=== PATIENT | female | born 1990 | race Caucasian/White ===

== ENCOUNTER 2017-02-24 20:46 | Emergency (ER) | payer OTHER ==
[~2017-02-24] VITALS: Ht 152.4 cm; Wt 71.2 kg
[~2017-02-24 20:46] MED LIST: ALLERGY10 M1 PO; CLINDAMYCIN HC300 MG PO; IBUPROFEN600 MG PO; NAPROSYN500 MG PO; NORCO 5-325 TA1 EACH PO; SUDAFED 12 HOU120 MG PO; TRAMADOL HCL50 MG PO
[2017-02-24] MEDS ORDERED: MULTIVITAMINS1 EAC7 PO (21:30)
== END 2017-02-24 23:19 | disposition home or self-care (01) ==
LOC: ED 20:46
DX: S30.1XXA Contusion of abdominal wall, initial encounter (principal); N83.201 Unspecified ovarian cyst, right side; F17.200 Nicotine dependence, unspecified, uncomplicated; Z87.442 Personal history of urinary calculi; Z88.0 Allergy status to penicillin; Z79.899 Other long term (current) drug therapy; W03.XXXA Other fall on same level due to collision with another person, initial encounter
CPT/HCPCS: 81001; 84703; 99283

== ENCOUNTER 2017-03-05 22:41 | Inpatient (IN) | payer OTHER ==
[~2017-03-05] VITALS: Ht 152.4 cm; Wt 65.0 kg
[~2017-03-05 22:41] MED LIST changes: +MULTIVITAMINS1 EAC7 PO
--- NOTE | 2017-03-06 03:40 | NUR ---
PT ARRIVED TO UNIT FROM E.D VIA STRETCHER. PT ALERT AND ORIENTED. AMBULATES INDEPENDENTLY WITHOUT DIFFICULTY. EDUCATED ON MEASURING VOIDS AND NEEDING URINE SAMPLE, PT VERBALIZED UNDERSTANDING. PT ON CONTINUOUS PULSE OXIMETER, SATS 97% ON ROOM AIR. PT ON TELEMETRY, SINUS RHYTHM, HR 94. IV FLUIDS INITIATED PER MD ORDERS. PT C/O PAGE, RECENTLY GIVEN TYLENOL IN E.R. PT NOW RESTING IN BED, USING CELL PHONE. CALL LIGHT WITHIN REACH. PT DENIES ANY FURTHER NEEDS AT THIS TIME.
--- NOTE | 2017-03-06 04:20 | NUR ---
PT UP INDEPENDENTLY TO VOID, VOIDING WITHOUT DIFFICULTY. URINE SAMPLE SENT PER MD ORDERS. IV FLUIDS INFUSING WITHOUT DIFFICULTY. CALL LIGHT WITHIN REACH. PT DENIES ANY FURTHER NEEDS AT THIS TIME.
--- NOTE | 2017-03-06 05:19 | NUR ---
PT ADMITTED TO MED/SURG AT 0340. PT ALERT AND ORIENTED. INDEPENDENT IN ROOM. ROOM AIR, DENIES ANY SOB. PT C/O HEADACHE, TYLENOL AVAILABLE. IV FLUIDS INFUSING WITHOUT DIFFICULTY. DIMINISHED LUNG SOUNDS. VOIDING WITHOUT DIFFICULTY.
--- NOTE | 2017-03-06 07:00 | NUR ---
NURSE NOTIFIED RE BP.
--- NOTE | 2017-03-06 07:24 | NUR ---
CALLED DR SCOTT REGARDING LOW BP, NO NEW ORDERS AT THIS TIME
--- NOTE | 2017-03-06 13:27 | NUR ---
PT NAPPING IN BED. TYLENOL GIVEN FOR PAIN IN CHEST D/T COUGHING. NO SPUTUM SAMPLE COLLECTED YET. NO SPUTUM.
--- NOTE | 2017-03-06 15:45 | NUR ---
PT NAPPING IN ROOM NOW. IV PUMP INPUT CLEARED.
--- NOTE | 2017-03-06 17:24 | NUR ---
UNEVENTFUL DAY. LUNGS DIM THROUGHOUT. COUGH. NO SPUTUM-- SPUTUM SAMPLE NEEDED. ROCEPHIN Q DAY. INDEPENDENT IN ROOM. DIARRHEA D/T ABX. REGULAR DIET.
[2017-03-06] MEDS ORDERED: AZITHROMYCIN500 MG PO (18:24)
[2017-03-06] MEDS ORDERED: CEFUROXIME500 MG PO (18:24)
--- NOTE | 2017-03-06 20:24 | NUR ---
PT ASSESSMENT COMPLETE. PT RESTING IN BED WATCHING TV. PT ALERT AND ORIENTED, PLEASANT AND IN GOOD SPIRITS THIS EVENING. PT DENIES ANY SOB, ROOM AIR. PT DENIES ANY N/V, ICE CREAM GIVEN PER PT REQUEST. PT C/O HEADACHE 11/11, DICLOFENAC GIVEN. REASSESSED PT TEMP, NOW 98.6, ENCOURAGED USE OF INCENTIVE SPIROMETER, ACAPELLA AND AMBULATION. EDUCATED PT ON NEED FOR SPUTUM SAMPLE IF ABLE TO COUGH UP ANYTHING, PT HAS NONPRDUCTIVE INTERMITTENT COUGH AT THIS TIME. IV FLUIDS INFUSING WITHOUT DIFFICULTY. CALL LIGHT WITHIN REACH. PT DENIES ANY FURTHER NEEDS AT THIS TIME.
--- NOTE | 2017-03-06 20:46 | NUR ---
GOT PATIENT FRESH ICE WATER. NURSE HAD ALREADY UPDATED BOARD.
--- NOTE | 2017-03-06 23:58 | NUR ---
PT C/O HEADACHE PAIN 02/11, TYLENOL GIVEN. IV FLUIDS INFUSING WITHOUT DIFFICULTY. PT RESTING IN BED, WATCHING TV. CALL LIGHT WITHIN REACH. PT DENIES ANY FURTHER NEEDS AT THIS TIME.
--- NOTE | 2017-03-07 00:04 | NUR ---
NURSE IN ROOM, PATIENT WANTS MEDICINE FOR HEADACHE
--- NOTE | 2017-03-07 01:18 | NUR ---
HAD PATIENT USE INCENTIVE SPIROMETER FOR ELEVATED TEMPERATURE. NURSE NOTIFIED.
--- NOTE | 2017-03-07 03:31 | NUR ---
PT SLEEPING, RR EVEN AND UNLABORED. PT APPEARS COMFORTABLE AT THIS TIME. IV FLUIDS INFUSING WITHOUT DIFFICULTY. CALL LIGHT WITHIN REACH.
--- NOTE | 2017-03-07 04:52 | NUR ---
PT HAD AN UNEVENTFUL NIGHT, SLEPT MOST OF NIGHT. C/O HEADACHE, RECEIVED DICLOFENAC AND TYLENOL. PT HAS SLIGHTLY ELEVATED TEMP HIGH 99.5 THIS SHIFT, ENCOURAGED USE OF I.S, ACAPELLA, AND AMBULATION. IV FLUIDS INFUSING WITHOUT DIFFICULTY. PT VOIDING WELL. INDEPENDENT IN ROOM. SPUTUM SAMPLE NEEDED IF PT ABLE, NONPRODUCTIVE COUGH AT THIS TIME. PT PLAN IS TO D/C HOME TODAY.
--- NOTE | 2017-03-07 07:35 | NUR ---
RECIEVED REPORT FROM DAY SHIFT NURSE. PT RESTING IN BED. DENIES NEEDS. CALL MIRANDA IN REACH.
--- NOTE | 2017-03-07 08:15 | NUR ---
PATIENT UP TO SHOWER.
--- NOTE | 2017-03-07 09:00 | NUR ---
PT RESTING IN BED. HOOKED BACK UP TO IVF. SHOWERED THIS MORNING. DENIES FURTHER NEEDS. CALL MIRANDA IN REACH.
[2017-03-07] MEDS ORDERED: NICOTINE1 EAC1 TD (10:05)
[2017-03-07] MEDS ORDERED: NICORETTE2 M1 BUCCAL (10:06)
--- NOTE | 2017-03-07 11:15 | NUR ---
PATIENT SITTING UP IN BED WATCHING TV. CALL BUTTON IN REACH. NO OTHER NEEDS AT THIS TIME.
--- NOTE | 2017-03-07 11:30 | NUR ---
REVIEWED D/C PAPERWORK WITH PATIENT. STATES SHE HAS NO QUESTIONS. IV REMOVED. CALL MIRANDA IN REACH.
--- NOTE | 2017-03-07 12:20 | NUR ---
FLU VACCINE ADMINISTERED. PT ABLE TO WALK OUT WITH NURSING STAFF.
== END 2017-03-07 12:20 | disposition home or self-care (01) | DRG 195 ==
LOC: ED 22:41 → MS 03-06 03:13
PROVIDERS: ADMIT Internal Medicine
DX: J13 Pneumonia due to Streptococcus pneumoniae (principal); F17.210 Nicotine dependence, cigarettes, uncomplicated; R09.1 Pleurisy
CPT/HCPCS: 71010; 80053; 81001; 83605; 84703; 85025; 87040; 87502; 90674; 96361; 96374; 96375; 99285; 99406; G0008; J0456; J0696; J1885; J2405; J7030; J7120

== ENCOUNTER 2020-06-22 21:28 | Emergency (ER) | payer OTHER ==
[~2020-06-22] VITALS: Ht 152.4 cm; Wt 70.3 kg
[~2020-06-22 21:28] MED LIST changes: +AZITHROMYCIN500 MG PO; +CEFUROXIME500 MG PO; +NICORETTE2 M1 BUCCAL; +NICOTINE1 EAC1 TD
[2020-06-22] MEDS ORDERED: IBUPROFEN600 MG PO (21:46)
[2020-06-22] MEDS ORDERED: CITALOPRAM HBR10 MG PO (21:46)
[2020-06-22] MEDS ORDERED: TRAMADOL HCL50 MG PO (21:59)
== END 2020-06-22 22:36 | disposition home or self-care (01) ==
LOC: ED 21:28
DX: N63.10 Unspecified lump in the right breast, unspecified quadrant (principal); F17.200 Nicotine dependence, unspecified, uncomplicated; Z88.0 Allergy status to penicillin
CPT/HCPCS: 99283

== ENCOUNTER 2020-12-21 10:01 | Observation (INO) | payer OTHER ==
[~2020-12-21] VITALS: Ht 152.4 cm; Wt 73.0 kg
[~2020-12-21 10:01] MED LIST changes: +BUPROPION HCL150 M2 PO; +CEPHALEXIN500 M1 PO; +CITALOPRAM HBR10 MG PO; +DICLOFENAC SODI75 MG PO; +HYDROCODON-ACE1 EA10 PO; +PROMETHAZINE HC25 M1 PO
--- OUTSIDE RECORDS SUMMARY | 2020-12-21 10:04 | XMS ---
PreManage Notification: MARCI LIND Security Hospital Product Specialist Events No recent Security Events currently on file CRITERIA MET - Group Notification - [facility] - Has Care Guidelines - PDMP CARE PROVIDERS MAYE GARCIA Internal Medicine 07/26/2020-Current PHONE: [phone] Tramaine has no Care Guidelines for this patient. Care History Medical/Surgical 07/26/2020 [facility] - Patient is currently established with [facility]. If patient is seen in the ED during business hours. Please contact CHWs at [facility]. Care Recommendation: If this patient has had 5 or more Emergency Department visits in the last 12 months.\T\nbsp; Patient will require education on the scope and purpose of the ED as an acute care provider not a Primary Care Provider and should not be utilized for chronic conditions.\T\nbsp; These are guidelines and the provider should exercise clinical judgment when providing care. 07/26/2020 [facility] Patient had possible kidney infection treated with IV antibiotics. Has a scheduled visit with Dr. Garcia on 08/02/2020. E.D. VISIT COUNT (12 MO.) [address] [facility] TOTAL 3 NOTE: Visits indicate total known visits. ED/UCC VISIT TRACKING (12 MO.) 12/21/2020 10:02 [facility] [place] TYPE: Emergency COMPLAINT: - UPPER ABDOMINAL PAIN 07/24/2020 09:56 [facility] [place] TYPE: Emergency COMPLAINT: - VOMITING,ABDOMINAL PAIN DIAGNOSES: - Tubulo-interstitial nephritis, not specified as acute or chronic - Nicotine dependence, unspecified, uncomplicated - Allergy status to penicillin - Unspecified abdominal pain - Personal history of urinary calculi 06/22/2020 21:[address] [facility] [place] TYPE: Emergency COMPLAINT: - RT SIDE BREAST PAIN DIAGNOSES: - Nicotine dependence, unspecified, uncomplicated - Unspecified lump in the right breast, unspecified quadrant - Allergy status to penicillin - Mastodynia INPATIENT VISIT TRACKING (12 MO.) No inpatient visits to display in this time frame [email or web address]
[2020-12-21] MEDS ORDERED: CELEXA40 MG PO (10:20)
[2020-12-21] MEDS ORDERED: OMEPRAZOLE20 M1 PO (10:20)
[2020-12-22] MEDS ORDERED: HYDROCODON-ACE1 EA10 PO (09:07)
--- NOTE | 2020-12-22 16:00 | EKG ---
[facility] [address] [place] [address] Signed Sinus bradycardia Otherwise normal ECG When compared with ECG of 24-JUL-2020 10:30, Vent. rate has decreased BY 72 BPM T wave inversion no longer evident in Inferior leads T wave inversion no longer evident in Lateral leads Confirmed by CARLOS SCOTT MD ([id number]) on 12/22/2020 4:00:03 PM Electronically Signed By: CARLOS SCOTT MD 12/22/20 1600 PATIENT NAME: MARCI LIND Electrocardiogram DATE OF : [birth year] PHYSICIAN: CARLOS SCOTT MD REPORT #: [id number] REPORT IS CONFIDENTIAL AND NOT TO BE RELEASED WITHOUT AUTHORIZATION
== END 2020-12-22 09:45 | disposition home or self-care (01) ==
LOC: ED 10:01 → MS 10:03
PROVIDERS: ADMIT Surgery; ATTEND Surgery
PROC: 0FT44ZZ Resection of Gallbladder, Percutaneous Endoscopic Approach (ICD-10-PCS; principal; 2020-12-21 14:45)
DX: K80.10 Calculus of gallbladder with chronic cholecystitis without obstruction (principal); Z87.891 Personal history of nicotine dependence; Z20.822 Contact with and (suspected) exposure to COVID-19; Z98.51 Tubal ligation status; Z88.0 Allergy status to penicillin
CPT/HCPCS: 00790; 76705; 80053; 81001; 83690; 84703; 85025; 88304; 93005; 93010; 96374; 96375; 96376; 99285-25; C9113; C9803; G0378; J0690; J1100; J1170; J2250; J2270; J2405; J3010; J7121; U0003

== ENCOUNTER 2021-01-12 18:48 | Emergency (ER) | payer OTHER ==
[~2021-01-12] VITALS: Ht 152.4 cm; Wt 69.8 kg
[~2021-01-12 18:48] MED LIST changes: +CELEXA40 MG PO; +OMEPRAZOLE20 M1 PO
--- OUTSIDE RECORDS SUMMARY | 2021-01-12 18:50 | XMS ---
PreManage Notification: MARCI LIND Security Optics Technical Officer Events No recent Security Events currently on file CRITERIA MET - [facility] - [facility] - 2 Visits in 30 Days - Group Notification CARE PROVIDERS JESUS KELLY Physician 12/22/2020-Current PHONE: [phone] Tramaine has no Care Guidelines for this patient. Alysha VISIT COUNT (12 MO.) 4 [facility] TOTAL 4 NOTE: Visits indicate total known visits. ED/UCC VISIT TRACKING (12 MO.) 01/12/2021 18:48 [facility] [place] TYPE: Emergency COMPLAINT: - RAPID HEART RATE,POSS VACCINE REACTION 12/21/2020 10:02 [facility] [place] TYPE: Emergency COMPLAINT: - UPPER ABDOMINAL PAIN 07/24/2020 09:56 [facility] [place] TYPE: Emergency COMPLAINT: - VOMITING,ABDOMINAL PAIN DIAGNOSES: - Tubulo-interstitial nephritis, not specified as acute or chronic - Nicotine dependence, unspecified, uncomplicated - Allergy status to penicillin - Unspecified abdominal pain - Personal history of urinary calculi 06/22/2020 21:28 [facility] [place] TYPE: Emergency COMPLAINT: - RT SIDE BREAST PAIN DIAGNOSES: - Nicotine dependence, unspecified, uncomplicated - Unspecified lump in the right breast, unspecified quadrant - Allergy status to penicillin - Mastodynia INPATIENT VISIT TRACKING (12 MO.) 12/21/2020 10:03 [facility] [place] TYPE: Observation COMPLAINT: - CHOLELITHIAS DIAGNOSES: - Calculus of gallbladder with chronic cholecystitis without obstruction - Allergy status to penicillin - Calculus of gallbladder without cholecystitis without obstruction - Personal history of nicotine dependence - Tubal ligation status [email or web address]
--- NOTE | 2021-01-13 20:15 | EKG ---
[facility] [address] [facility] [place], [place] [address] Signed Normal sinus rhythm Normal ECG When compared with ECG of 21-DEC-2020 11:22, No significant change was found Confirmed by ELLA CASTILLO DO ([id number]) on 01/13/2021 8:14:51 PM Electronically Signed By: ELLA CASTILLO DO 01/13/212014 PATIENT NAME: MARCI LIND Electrocardiogram DATE OF : [birth year] PHYSICIAN: ELLA CASTILLO DO REPORT #: [id number] REPORT IS CONFIDENTIAL AND NOT TO BE RELEASED WITHOUT AUTHORIZATION
== END 2021-01-12 21:32 | disposition home or self-care (01) ==
LOC: ED 18:48
DX: R00.2 Palpitations (principal); F43.10 Post-traumatic stress disorder, unspecified; F17.200 Nicotine dependence, unspecified, uncomplicated; Z88.0 Allergy status to penicillin; Z79.899 Other long term (current) drug therapy
CPT/HCPCS: 71045; 80053; 84484; 84703; 85025; 93005; 93010; 99285-25

== ENCOUNTER 2021-04-15 16:43 | Emergency (ER) | payer OTHER ==
[~2021-04-15] VITALS: Ht 152.4 cm; Wt 69.8 kg
--- OUTSIDE RECORDS SUMMARY | 2021-04-15 16:46 | XMS ---
PreManage Notification: MARCI LIND Security Cfa Events 1 event(s) in the past 18 months Most recent security events: Elopement at [facility] 03/15/2021 16:21 - Other Details: PATIENT LWBS CRITERIA MET - PDMP - Group Notification CARE PROVIDERS JESUS KELLY Physician 12/22/2020-Current PHONE: [phone] Tramaine has no Care Guidelines for this patient. Alysha VISIT COUNT (12 MO.) 6 [facility] TOTAL 6 NOTE: Visits indicate total known visits. ED/UCC VISIT TRACKING (12 MO.) 04/15/2021 16:44 [facility] [place] TYPE: Emergency COMPLAINT: - RAPID HEART RATE 03/15/2021 16:21 [facility] [place] TYPE: Emergency COMPLAINT: - HEADACHE 01/12/2021 18:48 [facility] [place] TYPE: Emergency COMPLAINT: - RAPID HEART RATE,POSS VACCINE REACTION DIAGNOSES: - Palpitations - Nicotine dependence, unspecified, uncomplicated - Post-traumatic stress disorder, unspecified - Other residential (current) drug therapy - Allergy status to penicillin 12/21/2020 10:02 [facility] [place] TYPE: Emergency [...] of nicotine dependence - Tubal ligation status [email or web address]
[2021-04-15] MEDS ORDERED: BUSPIRONE HCL10 MG PO (17:15)
[2021-04-15] MEDS ORDERED: REGLAN10 MG PO (18:55)
--- NOTE | 2021-04-15 22:30 | EKG ---
[facility] [address] [facility] [place] [address] Signed Normal sinus rhythm with sinus arrhythmia Nonspecific T wave abnormality Abnormal ECG When compared with ECG of 12-JAN-2021 19:22, Nonspecific T wave abnormality now evident in Anterior leads Confirmed by ELLA CASTILLO DO ([id number]) on 04/15/2021 10:30:16 PM Electronically Signed By: ELLA CASITLLO DO 04/15/212229 PATIENT NAME: MARCI LIND Electrocardiogram DATE OF : [birth year] PHYSICIAN: ELLA CASTILLO DO REPORT #: [id number] REPORT IS CONFIDENTIAL AND NOT TO BE RELEASED WITHOUT AUTHORIZATION
== END 2021-04-15 19:11 | disposition home or self-care (01) ==
LOC: ED 16:43
DX: G43.909 Migraine, unspecified, not intractable, without status migrainosus (principal); F43.10 Post-traumatic stress disorder, unspecified; F17.200 Nicotine dependence, unspecified, uncomplicated; Z79.899 Other long term (current) drug therapy
CPT/HCPCS: 93005; 93010; 96374; 96375; 99284-25; J1200; J1790; J1885; J7030

== ENCOUNTER 2021-05-29 12:22 | Emergency (ER) | payer OTHER ==
[~2021-05-29] VITALS: Ht 152.4 cm; Wt 69.8 kg
[~2021-05-29 12:22] MED LIST changes: +BUSPIRONE HCL10 MG PO; +REGLAN10 MG PO
--- OUTSIDE RECORDS SUMMARY | 2021-05-29 12:24 | XMS ---
PreManage Notification: MARCI LIND Security Toe Puller Events 1 event(s) in the past 18 months Most recent security events: Elopement at [facility] 03/15/2021 16:21 - Other Details: PATIENT LWBS CRITERIA MET - Group Notification - PDMP CARE PROVIDERS JESUS KELLY Physician 12/22/2020-Current PHONE: [phone] Tramaine has no Care Guidelines for this patient. Alysha VISIT COUNT (12 MO.) 7 [facility] TOTAL 7 NOTE: Visits indicate total known visits. ED/C VISIT TRACKING (12 MO.) 05/29/2021 12:22 [facility] [place] TYPE: Emergency COMPLAINT: - R SIDE PAIN 04/15/2021 16:44 [facility] [place] TYPE: Emergency COMPLAINT: - RAPID HEART RATE DIAGNOSES: - Palpitations - Nicotine dependence, unspecified, uncomplicated - Migraine, unspecified, not intractable, without status migrainosus - Post-traumatic stress disorder, unspecified - Other hook puller (current) drug therapy 03/15/2021 16:21 [facility] [place] TYPE: Emergency COMPLAINT: - HEADACHE 01/12/2021 18:48 [facility] [place] TYPE: Emergency COMPLAINT: - RAPID HEART RATE,POSS VACCINE REACTION DIAGNOSES: - Palpitations - Nicotine dependence, unspecified, uncomplicated - Post-traumatic stress disorder, unspecified - Other penitentiary (current) drug therapy - Allergy status to [...] of nicotine dependence - Tubal ligation status [email or web address]
[2021-05-29] MEDS ORDERED: GABAPENTIN100 MG PO (12:44)
[2021-05-29] MEDS ORDERED: ZITHROMAX250 MG PO (16:00)
--- NOTE | 2021-05-30 18:00 | EKG ---
[facility] [address] [facility] [place] [address] Signed Sinus bradycardia with marked sinus arrhythmia Low voltage QRS Borderline ECG When compared with ECG of 15-APR-2021 16:57, Vent. rate has decreased BY 34 BPM Nonspecific T wave abnormality no longer evident in Anterior leads Confirmed by ELLA CASTILLO DO ([id number]) on 05/30/2021 5:59:46 PM Electronically Signed By: ELLA CASTILLO DO 05/30/21 1800 PATIENT NAME: MARCI LIND Electrocardiogram DATE OF : [birth year] PHYSICIAN: ELLA CASTILLO DO REPORT #: [id number] REPORT IS CONFIDENTIAL AND NOT TO BE RELEASED WITHOUT AUTHORIZATION
== END 2021-05-29 16:12 | disposition home or self-care (01) ==
LOC: ED 12:22
DX: R10.11 Right upper quadrant pain (principal); J18.9 Pneumonia, unspecified organism; F43.10 Post-traumatic stress disorder, unspecified; G43.909 Migraine, unspecified, not intractable, without status migrainosus; F17.200 Nicotine dependence, unspecified, uncomplicated; Z88.0 Allergy status to penicillin; Z79.899 Other long term (current) drug therapy
CPT/HCPCS: 71045; 74177; 80053; 81001; 83690; 84703; 85025; 93005; 99284-25; J1170; J7030; Q9967

== ENCOUNTER 2021-06-06 18:58 | Emergency (ER) | payer OTHER ==
[~2021-06-06] VITALS: Ht 152.4 cm; Wt 71.7 kg
[~2021-06-06 18:58] MED LIST changes: +GABAPENTIN100 MG PO; +ZITHROMAX250 MG PO
--- OUTSIDE RECORDS SUMMARY | 2021-06-06 19:00 | XMS ---
PreManage Notification: MARCI LIND Security Fleet Sales Manager Events 1 event(s) in the past 18 months Most recent security events: Elopement at [facility] 03/15/2021 16:21 - Other Details: PATIENT LWBS CRITERIA MET - 6 ED Visits in 6 Months - [facility] - 2 Visits in 30 Days - Group Notification - PDMP CARE PROVIDERS JESUS KELLY Physician 12/22/2020-Current PHONE: [phone] Tramaine has no Care Guidelines for this patient. Alysha VISIT COUNT (12 MO.) 8 [facility] TOTAL 8 NOTE: Visits indicate total known visits. ED/UCC VISIT TRACKING (12 MO.) 06/06/2021 18:59 [facility] [place] TYPE: Emergency COMPLAINT: - ABDOMINAL PAIN 05/29/2021 12:22 [facility] [place] TYPE: Emergency COMPLAINT: - R SIDE PAIN DIAGNOSES: - Allergy status to penicillin - Migraine, unspecified, not intractable, without status migrainosus - Nicotine dependence, unspecified, uncomplicated - Post-traumatic stress disorder, unspecified - Other intermission coordinator (current) drug therapy - Right upper quadrant pain - Pneumonia, unspecified organism - Unspecified abdominal pain 04/15/2021 16:44 [facility] [place] TYPE: Emergency COMPLAINT: - RAPID HEART RATE DIAGNOSES: - Palpitations - Nicotine dependence, unspecified, uncomplicated - Migraine, unspecified, not intractable, without status migrainosus - Post-traumatic stress disorder, unspecified - Other intermission coordinator (current) drug therapy 03[facility]15/2021 16:[facility] [place] [facility] COMPLAINT: - HEADACHE 01/12/2021 18:48 [facility] [place] TYPE: Emergency COMPLAINT: - RAPID HEART RATE,POSS VACCINE REACTION DIAGNOSES: - Palpitations - Nicotine dependence, unspecified, uncomplicated - Post-traumatic stress disorder, unspecified - Other mcfp (current) drug therapy - Allergy status to penicillin 12/21/2020 10:[address] [facility] [place] [facility]: Emergency COMPLAINT: - UPPER ABDOMINAL [...] of nicotine dependence - Tubal ligation status [email or web address]
[2021-06-06] MEDS ORDERED: CEPHALEXIN500 MG PO (22:53)
== END 2021-06-06 23:16 | disposition home or self-care (01) ==
LOC: ED 18:58
DX: N39.0 Urinary tract infection, site not specified (principal); F43.10 Post-traumatic stress disorder, unspecified; F17.200 Nicotine dependence, unspecified, uncomplicated; Z88.0 Allergy status to penicillin; Z79.899 Other long term (current) drug therapy
CPT/HCPCS: 76705; 81001; 84703; 99284-25

== ENCOUNTER 2021-06-14 15:37 | Emergency (ER) | payer OTHER ==
[~2021-06-14] VITALS: Ht 152.4 cm; Wt 72.9 kg
[~2021-06-14 15:37] MED LIST changes: +CEPHALEXIN500 MG PO
--- OUTSIDE RECORDS SUMMARY | 2021-06-14 15:40 | XMS ---
PreManage Notification: MARCI LIND Security Best Second Jobs Events 1 event(s) in the past 18 months Most recent security events: Elopement at [facility] 03/15/2021 16:21 - Other Details: PATIENT LWBS CRITERIA MET - [facility] - 2 Visits in 30 Days - PDMP - 6 ED Visits in 6 Months - Group Notification CARE PROVIDERS JESUS KELLY Physician [employer] 12/22/2020-Current PHONE: [phone] Tramaine has no Care Guidelines for this patient. Care History Medical/Surgical 06/07/2021 [facility] - PATIENT SCHEDULED AN ER FOLLOW UP WITH PCP JESUS KELLY- 06/07/21-CHW CONFIRMED WITH PCP OFFICE PATIENT DID SHOW UP FOR ER FOLLOW UP [address] [place] VISIT COUNT (12 MO.) 9 [facility] TOTAL 9 NOTE: Visits indicate total known visits. ED/UCC VISIT TRACKING (12 MO.) 06/14/2021 15:[address] [facility] [place] TYPE: Emergency COMPLAINT: - R SIDE RIB PAIN 06/06/2021 18:59 [facility] [place] TYPE: Emergency COMPLAINT: - ABDOMINAL PAIN DIAGNOSES: - Post-traumatic stress disorder, unspecified - Nicotine dependence, unspecified, uncomplicated - Other buttermaker (current) drug therapy - Urinary tract infection, site not specified - Allergy status to penicillin - Right upper quadrant pain 05/29/2021 12:[address] [facility] [place] TYPE: Emergency COMPLAINT: - R SIDE PAIN DIAGNOSES: - Allergy status to penicillin - Migraine, unspecified, not intractable, without status migrainosus - Nicotine dependence, unspecified, uncomplicated - Post-traumatic stress disorder, unspecified - Other penitentiary (current) drug therapy - Right upper quadrant pain - Pneumonia, unspecified organism - Unspecified abdominal pain 04/15/2021 16:44 [facility] [place] TYPE: Emergency COMPLAINT: - RAPID HEART RATE DIAGNOSES: - Palpitations - Nicotine dependence, unspecified, uncomplicated - Migraine, unspecified, not intractable, without status migrainosus - Post-traumatic stress disorder, unspecified - Other penitentiary (current) drug therapy 03/15/2021 16:[address] [facility] [place] TYPE: Emergency COMPLAINT: - HEADACHE 01/12/2021 18:48 [facility] [place] TYPE: Emergency COMPLAINT: - RAPID HEART RATE,POSS VACCINE REACTION DIAGNOSES: - Palpitations - Nicotine dependence, unspecified, uncomplicated - Post-traumatic stress disorder, unspecified - Other buttermaker (current) drug therapy - Allergy status to [...] of nicotine dependence - Tubal ligation status [email or web address]
[2021-06-14] MEDS ORDERED: PROPRANOLOL HCL40 MG PO (16:58)
[2021-06-14] MEDS ORDERED: SUMATRIPTAN SU100 MG PO (16:58)
[2021-06-14] MEDS ORDERED: AZITHROMYCIN500 MG PO (21:54)
[2021-06-14] MEDS ORDERED: LASIX20 MG PO (21:54)
[2021-06-14] MEDS ORDERED: HYDROCODON-ACE1 EA10 PO (21:54)
== END 2021-06-14 22:55 | disposition home or self-care (01) ==
LOC: ED 15:37
DX: J90 Pleural effusion, not elsewhere classified (principal); J98.11 Atelectasis; Z20.822 Contact with and (suspected) exposure to COVID-19; F43.10 Post-traumatic stress disorder, unspecified; G43.909 Migraine, unspecified, not intractable, without status migrainosus; F17.200 Nicotine dependence, unspecified, uncomplicated; Z88.0 Allergy status to penicillin; Z79.899 Other long term (current) drug therapy
CPT/HCPCS: 71045; 74176; 80048; 81001; 83605; 83690; 84703; 85025; 96374; 96375; 96376; 99284-25; C9803; J1170; J2405; U0003

== ENCOUNTER 2022-03-30 19:14 | Emergency (ER) | payer OTHER ==
[~2022-03-30] VITALS: Ht 152.4 cm; Wt 68.0 kg
[~2022-03-30 19:14] MED LIST changes: +LASIX20 MG PO; +PROPRANOLOL HCL40 MG PO; +SUMATRIPTAN SU100 MG PO
--- OUTSIDE RECORDS SUMMARY | 2022-03-30 19:18 | XMS ---
PreManage Notification: MARCI LIND Security Or Manager Events 1 event(s) in the past 18 months Most recent security events: Elopement at [facility] 03/15/2021 16:21 - Other Details: PATIENT LWBS CRITERIA MET - Group Notification - PDMP CARE PROVIDERS Gilda Moncada Nurse Practitioner: Current PHONE: [phone] Tramaine has no Care Guidelines for this patient. Care History Medical/Surgical 06/15/2021 [facility] - CHW CALLED PCP JESUS KELLY- THEY DO NOT HAVE RECENT ED CLINICALS ON FILE- CHW SENT CLINICALS PER REQUEST FROM PCP. - CHW CALLED PATIENT DISCUSSED RECENT ED VISITS AND DISCUSSED FURTHER FOLLOW UP WITH THE PCP AND PATIENT AGREED AND STATED SHE DOES HAVE TRANSPORTATION TO AND FROM THE APT AND WILL CONTACT PCP OFFICE FOR FOLLOW UP. 06/07/2021 [facility] - PATIENT SCHEDULED AN ER FOLLOW UP WITH PCP JESUS KELLY- 06/07/21-CHW CONFIRMED WITH PCP OFFICE PATIENT DID SHOW UP FOR ER FOLLOW UP APT. E.D. VISIT COUNT (12 MO.) [address] [facility] TOTAL 5 NOTE: Visits indicate total known visits. ED/UCC VISIT TRACKING (12 MO.) 03/30/2022 19:15 [facility] [place] TYPE: Emergency COMPLAINT: - BREAST PAIN 06/14/2021 15:38 [facility] [place] TYPE: Emergency COMPLAINT: - R SIDE RIB PAIN DIAGNOSES: - Post-traumatic stress disorder, unspecified - Allergy status to penicillin - Migraine, unspecified, not intractable, without status migrainosus - Atelectasis - Contact with and (suspected) exposure to COVID-19 - Other terminal worker (current) drug therapy - Nicotine dependence, unspecified, uncomplicated - Pleural effusion, not elsewhere classified - Unspecified abdominal pain 06/06/2021 18:59 [facility] [place] TYPE: Emergency COMPLAINT: - ABDOMINAL PAIN DIAGNOSES: - Other terminal worker (current) drug therapy - Post-traumatic stress disorder, unspecified - Right upper quadrant pain - Urinary tract infection, site not specified - Nicotine dependence, unspecified, uncomplicated - Allergy status to penicillin 05/29/2021 12:22 [facility] [place] TYPE: Emergency COMPLAINT: - R SIDE PAIN DIAGNOSES: - Nicotine dependence, unspecified, uncomplicated - Allergy status to penicillin - Unspecified abdominal pain - Right upper quadrant pain - Post-traumatic stress disorder, unspecified - Migraine, unspecified, not intractable, without status migrainosus - Pneumonia, unspecified organism - Other terminal worker (current) drug therapy 04/15/2021 16:44 [facility] [place] TYPE: Emergency COMPLAINT: - RAPID HEART RATE DIAGNOSES: - Migraine, unspecified, not intractable, without status migrainosus - Palpitations - Post-traumatic stress disorder, unspecified - Nicotine dependence, unspecified, uncomplicated - Other terminal worker (current) drug therapy INPATIENT VISIT TRACKING (12 MO.) No inpatient visits to display in this time frame [email or web address]
== END 2022-03-30 20:25 | disposition home or self-care (01) ==
LOC: ED 19:14
DX: N64.4 Mastodynia (principal); F17.200 Nicotine dependence, unspecified, uncomplicated; Z88.0 Allergy status to penicillin; Z79.899 Other long term (current) drug therapy
CPT/HCPCS: 36415; 76642; 80053; 85025; 99284-25

== ENCOUNTER 2022-10-07 20:21 | Emergency (ER) | payer OTHER ==
[~2022-10-07] VITALS: Ht 152.4 cm; Wt 66.0 kg
--- OUTSIDE RECORDS SUMMARY | 2022-10-07 20:24 | XMS ---
PreManage Notification: MARCI LIND Security Waiter And Cashier Events No recent Security Events currently on file CRITERIA MET - PDMP - Group Notification CARE PROVIDERS -, Ollie Vaughn- Dentist: High Scaler [facility] PHONE: [phone] -, [place]- Dentist: High Scaler [facility] PHONE: [phone] Tramaine has no Care Guidelines for this patient. Care History Medical/Surgical 06/15/2021 [facility] - CHW CALLED PCP JEUSS KELLY- THEY DO NOT HAVE RECENT ED CLINICALS ON FILE- CHW SENT CLINICALS PER REQUEST FROM PCP. - CHW CALLED PATIENT DISCUSSED RECENT ED VISITS AND DISCUSSED FURTHER FOLLOW UP WITH THE PCP AND PATIENT AGREED AND STATED SHE DOES HAVE TRANSPORTATION TO AND FROM THE APT AND WILL CONTACT PCP OFFICE FOR FOLLOW UP. 06/07/2021 [facility] - PATIENT SCHEDULED AN ER FOLLOW UP WITH PCP JESUS KELLY- 06/07/21-CHW CONFIRMED WITH PCP OFFICE PATIENT DID SHOW UP FOR ER FOLLOW UP APT. E.D. VISIT COUNT (12 MO.) 2 [facility] TOTAL 2 NOTE: Visits indicate total known visits. ED/UCC VISIT TRACKING (12 MO.) 10/07/2022 20:23 [facility] [place] TYPE: Emergency COMPLAINT: - HEAD PAIN 03/30/2022 19:[address] [facility] [place] TYPE: Emergency COMPLAINT: - BREAST PAIN DIAGNOSES: - Allergy status to penicillin - Mastodynia - Nicotine dependence, unspecified, uncomplicated - Other terminal superintendent (current) drug therapy INPATIENT VISIT TRACKING (12 MO.) No inpatient visits to display in this time frame [email or web address]
[2022-10-07] MEDS ORDERED: GABAPENTIN300 MG PO (21:57)
[2022-10-07] MEDS ORDERED: OMEPRAZOLE20 MG PO (21:57)
[2022-10-07] MEDS ORDERED: SPRINTEC1 EACH PO (21:57)
[2022-10-07] MEDS ORDERED: CITALOPRAM HBR40 MG PO (21:58)
[2022-10-07] MEDS ORDERED: BUPROPION HCL200 MG PO (21:58)
[2022-10-07] MEDS ORDERED: BUSPIRONE HCL15 MG PO (21:58)
[2022-10-07] MEDS ORDERED: CYCLOBENZAPRINE10 MG PO (22:10)
[2022-10-07] MEDS ORDERED: MELOXICAM7.5 MG PO (22:10)
[2022-10-07 22:40] VITALS: BP 100/65
== END 2022-10-07 22:41 | disposition home or self-care (01) ==
LOC: ED 20:21
DX: S16.1XXA Strain of muscle, fascia and tendon at neck level, initial encounter (principal); W22.8XXA Striking against or struck by other objects, initial encounter; F17.200 Nicotine dependence, unspecified, uncomplicated; Z80.0 Family history of malignant neoplasm of digestive organs; Z79.899 Other long term (current) drug therapy
CPT/HCPCS: 72040; 96372; 99283-25; J1885; J3360

== ENCOUNTER 2023-01-14 21:58 | Emergency (ER) | payer OTHER | END 2023-01-14 23:54 | disposition home or self-care (01) | LOC: ED 21:58 | DX: G43.909 Migraine, unspecified, not intractable, without status migrainosus (principal); F17.200 Nicotine dependence, unspecified, uncomplicated; Z88.0 Allergy status to penicillin; Z79.899 Other long term (current) drug therapy ==

== ENCOUNTER 2023-02-12 12:38 | Emergency (ER) | payer OTHER ==
[~2023-02-12] VITALS: Ht 152.4 cm; Wt 69.8 kg
[~2023-02-12 12:38] MED LIST changes: +BUPROPION HCL200 MG PO; +BUSPIRONE HCL15 MG PO; +CITALOPRAM HBR40 MG PO; +CYCLOBENZAPRINE10 MG PO; +GABAPENTIN300 MG PO; +MELOXICAM7.5 MG PO; +OMEPRAZOLE20 MG PO; +SPRINTEC1 EACH PO; +VALACYCLOVIR1000 MG PO
--- OUTSIDE RECORDS SUMMARY | 2023-02-12 12:41 | XMS ---
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 Care History Medical/Surgical 06/15/2021 [facility] [place] - [facility]W CALLED PCP JESUS KELLY- THEY DO NOT HAVE RECENT ED CLINICALS ON FILE- CHW SENT CLINICALS PER REQUEST FROM PCP. - CHW CALLED PATIENT DISCUSSED RECENT ED VISITS AND DISCUSSED FURTHER FOLLOW UP WITH THE PCP AND PATIENT AGREED AND STATED SHE DOES HAVE TRANSPORTATION TO AND FROM THE [facility]T AND WILL CONTACT PCP OFFICE FOR FOLLOW UP. 06/07/2021 [facility] [place] - PATIENT SCHEDULED AN ER FOLLOW UP WITH PCP JESUS KELLY- 06/07/21-[facility]W CONFIRMED WITH PCP OFFICE PATIENT DID SHOW UP FOR ER FOLLOW UP [facility] VISIT COUNT (12 MO.) 4 MARIOLA Stevenson TOTAL 4 NOTE: Visits indicate total known visits. ED/UCC VISIT TRACKING (12 MO.) 02/12/2023 12:39 MARIOLA [facility] [place] TYPE: Emergency COMPLAINT: - L SIDE PAIN, FEVER, V/D 01/14/2023 21:[address] 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 10/07/2022 20:23 MARIOLA Rivera[facility]strong [facility] [place] TYPE: Emergency COMPLAINT: - HEAD PAIN DIAGNOSES: - Cervicalgia - Family history of malignant neoplasm of digestive organs - Nicotine dependence, unspecified, uncomplicated - Other usp (current) drug therapy - Strain of muscle, fascia and tendon at neck level, initial encounter - Striking against or struck by other objects, initial encounter 03/30/2022 19:15 MARIOLA [facility] [place] TYPE: Emergency COMPLAINT: - BREAST PAIN DIAGNOSES: - Allergy status to penicillin - Mastodynia - Nicotine dependence, unspecified, uncomplicated - Other intermediate teacher (current) 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
[2023-02-12 14:52] LABS: HEMOGLOBIN 13.5 g/dL (12.0-18.0); MCH 30.8 (27-36); MCHC 33.7 g/dl (30-36); MCV 91.5 fl (81-99); PLATELET COUNT 290 K/uL (140-440); RBC 4.37 M/ul (4.3-5.7); RDW 14.9 (10.5-15.0)
[2023-02-12 15:08] LABS: ALBUMIN 3.6 g/dL (3.4-5.0); ALBUMIN/GLOBULIN RATIO 0.82 (1.1-2.4); ANION GAP 17.3 (7-21); BILIRUBIN, TOTAL 0.8 ng/dL (0.2-1.0); BUN/CREATININE RATIO 9.41 (6.0-28.6); CALCIUM 9.3 mg/dL (8.5-10.1); CREATININE, SERUM 0.85 mg/dL (0.55-1.02); MAGNESIUM 1.7 mg/dL (1.8-2.4); POTASSIUM 3.3 mmol/L (3.5-5.1)
[2023-02-12 15:14] LABS: BASOPHILS, MANUAL DIFF 1; LYMPHOCYTES, MANUAL DIFF 8; MONOCYTES, MANUAL DIFF 10; NEUTROPHILS, MANUAL DIFF 81
[2023-02-12 15:48] LABS: BILIRUBIN, URINE POSITIVE (negative); BLOOD/HGB, URINE MODERATE (Negative); KETONE, URINE >=80 (Negative); LEUK ESTERASE, URINE SMALL (negative); NITRITE, URINE POSITIVE (negative); PH, URINE 5.5 (5-7)
[2023-02-12 15:56] LABS: RED BLOOD CELLS, URINE 0-1 /hpf (0-5); WHITE BLOOD CELLS, URINE 41-50 /HPF (0-5)
[2023-02-12 15:57] LABS: BACTERIA, URINE 1+ /hpf (negative); CASTS, URINE NONE SEEN \\lpf; COLLECTION TYPE, URINE CLEAN CATCH; CRYSTALS, URINE NONE SEEN (0-1+); EPITHELIAL CELLS, URINE SQUAMOUS 1+ /lpf (0-1+); REFLEX CULTURE, URINE Yes (No)
[2023-02-12] MEDS ORDERED: CEFDINIR300 MG PO (18:49)
[2023-02-12] MEDS ORDERED: HYDROCODON-ACE1 EA10 PO (18:49)
[2023-02-12 19:06] VITALS: BP 118/74
== END 2023-02-12 19:09 | disposition home or self-care (01) ==
LOC: ED 12:38
PROVIDERS: Emergency Medicine
DX: N12 Tubulo-interstitial nephritis, not specified as acute or chronic (principal); R11.10 Vomiting, unspecified; R19.7 Diarrhea, unspecified; F17.200 Nicotine dependence, unspecified, uncomplicated; Z88.0 Allergy status to penicillin; Z79.899 Other long term (current) drug therapy
CPT/HCPCS: 36415; 74177; 80053; 81001; 83690; 83735; 84703; 85025; 87088; 96361; 96375; 99284-25; J0696; J1170; J2405; J7030; Q9967

== ENCOUNTER 2024-03-03 12:47 | Emergency (ER) | payer OTHER ==
[~2024-03-03] VITALS: Ht 152.4 cm; Wt 62.9 kg
[~2024-03-03 12:47] MED LIST changes: +AMITRIPTYLINE H25 MG PO; +CARAFATE1 GM PO; +CEFDINIR300 MG PO; +CIPRO500 MG PO; +ONDANSETRON ODT8 MG PO; +PROTONIX40 MG PO
[2024-03-03] MEDS ORDERED: ADVIL LIQUI-GE200 MG PO (13:05)
[2024-03-03] MEDS ORDERED: TYLENOL EXTRA500 MG PO (13:05)
[2024-03-03 13:30] LABS: BILIRUBIN, URINE NEGATIVE (negative); BLOOD/HGB, URINE MODERATE (Negative); KETONE, URINE SMALL (Negative); LEUK ESTERASE, URINE NEGATIVE (negative); NITRITE, URINE NEGATIVE (negative)
[2024-03-03 13:39] LABS: BACTERIA, URINE 1+ /hpf (negative); CASTS, URINE NONE SEEN \\lpf; COLLECTION TYPE, URINE CLEAN CATCH; CRYSTALS, URINE NONE SEEN (0-1+); EPITHELIAL CELLS, URINE SQUAMOUS 4+ /lpf (0-1+); REFLEX CULTURE, URINE No (No)
[2024-03-03 13:59] LABS: INFLUENZA B NAA NEGATIVE (NEGATIVE); RESPIRATORY SYNCYTIAL VIR NAA NEGATIVE (NEGATIVE)
[2024-03-03] MEDS ORDERED: ondansetron HCL 4 MG/2 ML VIAL IV ONE (14:00)
[2024-03-03] MEDS ORDERED: KETOROLAC TROMETHAMINE 30 MG/ML VIAL IV ONE (14:00)
[2024-03-03] MEDS ORDERED: SODIUM CHLORIDE 0.9% 1,000 ML IV ONE (14:00)
[2024-03-03 14:13] LABS: BASOPHILS 0.2 % (0-2); EOSINOPHILS 0.3 % (0-6); HEMATOCRIT 34.3 % (35.0-50.0); HEMOGLOBIN 11.3 g/dL (12.0-18.0); MCH 30.2 (27-36); MCHC 33.1 g/dl (30-36); MCV 91.1 fl (81-99); MONOCYTES 11.6 % (0-12); NEUTROPHILS 72.9 % (39-80); PLATELET COUNT 258 K/uL (140-440); RBC 3.76 M/ul (4.3-5.7); RDW 13.2 (10.5-15.0)
[2024-03-03 14:28] LABS: ALBUMIN 2.7 g/dL (3.4-5.0); ALBUMIN/GLOBULIN RATIO 0.75 (1.1-2.4); BILIRUBIN, TOTAL 0.3 ng/dL (0.2-1.0); BUN/CREATININE RATIO 6.84 (6.0-28.6); CALCIUM 8.7 mg/dL (8.5-10.1); CREATININE, SERUM 0.73 mg/dL (0.55-1.02); PROTEIN, TOTAL 6.3 g/dL (6.4-8.2)
[2024-03-03] MEDS ORDERED: HYDROmorphone HCL 1 MG/ML SYR IV ONE (15:00)
[2024-03-03] MEDS ORDERED: PERCOCET 5-3251 EACH PO (15:58)
[2024-03-03 16:00] VITALS: BP 111/65
== END 2024-03-03 16:05 | disposition home or self-care (01) ==
LOC: ED 12:47
PROVIDERS: Emergency Medicine
DX: N20.0 Calculus of kidney (principal); F17.200 Nicotine dependence, unspecified, uncomplicated; Z88.0 Allergy status to penicillin; Z79.899 Other long term (current) drug therapy
CPT/HCPCS: 36415; 74176; 80053; 81001; 83690; 84703; 85025; 87502; 96361; 96374; 96375; 99284-25; J1170; J1885; J2405; J7030; U0002

== ENCOUNTER 2024-08-23 13:55 | Emergency (ER) | payer OTHER ==
[~2024-08-23] VITALS: Ht 152.4 cm; Wt 60.6 kg
[~2024-08-23 13:55] MED LIST changes: +ADVIL LIQUI-GE200 MG PO; +PERCOCET 5-3251 EACH PO; +TYLENOL EXTRA500 MG PO
[2024-08-23] MEDS ORDERED: SODIUM CHLORIDE 0.9% 1,000 ML IV ONE (16:15)
[2024-08-23] MEDS ORDERED: DIPHENOXYLATE/ATROPINE 1 EA TAB PO ONE (16:15)
[2024-08-23 16:39] LABS: BASOPHILS 0.5 % (0-2); EOSINOPHILS 1.1 % (0-6); HEMATOCRIT 43.2 % (35.0-50.0); HEMOGLOBIN 14.8 g/dL (12.0-18.0); LYMPHOCYTES 27.4 % (24-44); MCH 31.4 (27-36); MCHC 34.3 g/dl (30-36); MCV 91.5 fl (81-99); MONOCYTES 5.8 % (0-12); NEUTROPHILS 65.2 % (39-80); PLATELET COUNT 374 K/uL (140-440); RBC 4.72 M/ul (4.3-5.7); RDW 12.8 (10.5-15.0)
[2024-08-23 16:54] LABS: ALBUMIN 4.1 g/dL (3.4-5.0); ALBUMIN/GLOBULIN RATIO 1.08 (1.1-2.4); ANION GAP 13.7 (7-21); BILIRUBIN, TOTAL 0.5 mg/dL (0.2-1.0); BUN/CREATININE RATIO 9.58 (6.0-28.6); CALCIUM 9.1 mg/dL (8.5-10.1); CREATININE, SERUM 0.73 mg/dL (0.55-1.02); MAGNESIUM 2.1 mg/dL (1.8-2.4); POTASSIUM 3.7 mmol/L (3.5-5.1); PROTEIN, TOTAL 7.9 g/dL (6.4-8.2)
[2024-08-23] MEDS ORDERED: LOMOTIL TABLET1 EACH PO (18:40)
[2024-08-23 18:56] VITALS: BP 90/58
== END 2024-08-23 18:57 | disposition home or self-care (01) ==
LOC: ED 13:55
PROVIDERS: Emergency Medicine
DX: K52.9 Noninfective gastroenteritis and colitis, unspecified (principal); F43.10 Post-traumatic stress disorder, unspecified; F17.200 Nicotine dependence, unspecified, uncomplicated; Z88.0 Allergy status to penicillin; Z79.899 Other long term (current) drug therapy
CPT/HCPCS: 36415; 80053; 83735; 84703; 85025; J7030

== ENCOUNTER 2025-03-06 16:02 | Emergency (ER) | payer OTHER ==
[~2025-03-06] VITALS: Ht 152.4 cm; Wt 57.4 kg
[~2025-03-06 16:02] MED LIST changes: +LOMOTIL TABLET1 EACH PO
[2025-03-06] MEDS ORDERED: AJOVY AUTO225 MG/1.5 SQ (16:39)
[2025-03-06] MEDS ORDERED: FLUTICASONE PRO16 GM NAS (16:39)
[2025-03-06] MEDS ORDERED: SODIUM CHLORIDE 0.9% 1,000 ML IV PRN (16:45)
[2025-03-06] MEDS ORDERED: KETOROLAC TROMETHAMINE 15 MG/ML VIAL IV ONE (16:45)
[2025-03-06 16:52] LABS: BASOPHILS 1.0 % (0.1-1.2); BLOOD/HGB, URINE NEGATIVE (Negative); EOSINOPHILS 2.0 % (0.7-5.8); KETONE, URINE NEGATIVE (Negative); LEUK ESTERASE, URINE NEGATIVE (negative); LYMPHOCYTES 34.4 % (19.3-51.7); MCH 30.3 PG (25.6-32.2); MCHC 33.0 g/dL (32.2-35.5); MCV 91.9 fL (79.4-94.8); MONOCYTES 8.9 % (4.7-12.5); NEUTROPHILS 53.4 % (34.0-71.1); NITRITE, URINE POSITIVE (negative); RBC 4.55 M/uL (3.93-5.22)
[2025-03-06 16:59] LABS: BACTERIA, URINE 4+ /hpf (negative); CASTS, URINE NONE SEEN \\lpf; CRYSTALS, URINE NONE SEEN (0-1+); EPITHELIAL CELLS, URINE SQUAMOUS 1+ /lpf (0-1+); REFLEX CULTURE, URINE Yes (No)
[2025-03-06 17:08] LABS: ALT (SGPT) 16.0 U/L (14-59); AST (SGOT) 12.0 U/L (15-37); GLOMERULAR FILTRATION RATE,EST 121.0 mL/min (>60); PROTEIN, TOTAL 7.4 g/dL (6.4-8.2); UREA NITROGEN 10.0 mg/dL (7-18)
[2025-03-06] MEDS ORDERED: MACROBID 100 M100 MG PO (19:53)
[2025-03-06] MEDS ORDERED: NITROFURANTOIN MONOHYD MACROCR 100 MG HOME.PACK PO ONE (20:00)
[2025-03-06 20:10] VITALS: BP 90/53
== END 2025-03-06 20:08 | disposition home or self-care (01) ==
LOC: ED 16:02
PROVIDERS: Emergency Medicine
DX: N39.0 Urinary tract infection, site not specified (principal); F17.200 Nicotine dependence, unspecified, uncomplicated; Z88.0 Allergy status to penicillin; Z79.899 Other long term (current) drug therapy
CPT/HCPCS: 36415; 74177; 80053; 81001; 84703; 85025; 87077; 87088; 87186; 96374; 96375; 99284-25; J1885; J2405; J7030; Q9967

== ENCOUNTER 2025-03-07 19:44 | Emergency (ER) | payer OTHER ==
[~2025-03-07] VITALS: Ht 152.4 cm; Wt 56.3 kg
[~2025-03-07 19:44] MED LIST changes: +AJOVY AUTO225 MG/1.5 SQ; +FLUTICASONE PRO16 GM NAS; +MACROBID 100 M100 MG PO
[2025-03-07 20:15] LABS: BASOPHILS 0.6 % (0.1-1.2); EOSINOPHILS 3.2 % (0.7-5.8); LYMPHOCYTES 46.0 % (19.3-51.7); MCH 30.6 PG (25.6-32.2); MCHC 32.8 g/dL (32.2-35.5); MCV 93.3 fL (79.4-94.8); MONOCYTES 8.6 % (4.7-12.5); NEUTROPHILS 41.3 % (34.0-71.1); RBC 4.15 M/uL (3.93-5.22)
[2025-03-07] MEDS ORDERED: SODIUM CHLORIDE 0.9% 1,000 ML IV ONE (20:15)
[2025-03-07] MEDS ORDERED: HYDROmorphone HCL 1 MG/ML SYR IV ONE (20:15)
[2025-03-07 20:32] LABS: ALT (SGPT) 15.0 U/L (14-59); AST (SGOT) 11.0 U/L (15-37); GLOMERULAR FILTRATION RATE,EST 121.0 mL/min (>60); PROTEIN, TOTAL 6.4 g/dL (6.4-8.2); UREA NITROGEN 6.0 mg/dL (7-18)
[2025-03-07] MEDS ORDERED: HYDROmorphone HCL 1 MG/ML SYR IV PRN (21:15)
[2025-03-07 23:10] LABS: N. GONORRRHOEAE BY PCR NOT DETECTED (NOT DETECT)
[2025-03-07 23:27] VITALS: BP 94/51
[2025-03-07] MEDS ORDERED: HYDROCODONE BIT/ACETAMINOPHEN 5/325 MG 1 TAB HOME.PACK PO ONE (23:30)
== END 2025-03-07 23:27 | disposition home or self-care (01) ==
LOC: ED 19:44
PROVIDERS: Family Medicine
DX: R10.21 Pelvic and perineal pain right side (principal); F17.200 Nicotine dependence, unspecified, uncomplicated; Z88.0 Allergy status to penicillin; Z79.899 Other long term (current) drug therapy
CPT/HCPCS: 36415; 76830; 76857; 80053; 84703; 85025; 96361; 96374; 96375; 96376; 99284-25; A9270; J1171; J2405; J7030